=== PATIENT | male | born 1980 | race Caucasian/White ===

== ENCOUNTER → 2016-09-25 | Day surgery (SDC) | payer OTHER ==
[~2016-09-25] MED LIST: ATOR20TA58 PO; FENTANYL PF 100 MCG/2 ML VIAL. IV PRN; HYDROMORPHONE 2 MG/ML VIAL. IV PRN; IV RINGERS,LACTATED 1000ML 1,000 ML IV SCH; LIDOCAINE 1% 1 ML SYRINGE. ID PRN; LIDOCAINE 2% PF Vial for OR 5 ML VIAL. ONE; MORPHINE SULFATE 2 MG/ML DISP.SYRIN. IV PRN; ONDANSETRON PF 4 MG/2 ML VIAL. IV PRN; ORPH100T PO; PROCHLORPERAZINE 10 MG/2 ML VIAL. IV PRN; PROPOFOL 0 ML IV ONE; PROPOFOL 20 ML IV ONE; SUMA100T4 PO; TRAM50TA PO
[2016-09-25 09:37] VITALS: BP 107/60
--- NOTE | 2016-09-26 00:41 | CONS ---
DATE OF CONSULTATION: 09/25/2016 REFERRING PHYSICIAN: ____. HISTORY OF PRESENT ILLNESS: This is a 36-year-old male with past medical history significant for hyperlipidemia, arthritis is seen for further evaluation of right upper quadrant abdominal pain that is worsened with movement, 10 months in duration, worse with fatty and greasy foods, prior appendectomy, has had a previous ultrasound of the gallbladder and HIDA scan with ejection fraction then performed, which were unrevealing for cholelithiasis and/or symptom reproduction with the Kinevac injection with stable weight and appetite, lack of resolution with Prilosec 20 mg daily. He is here for EGD to further assess. PAST MEDICAL HISTORY: Osteoarthrosis, hyperlipidemia. ALLERGIES: CODEINE. MEDICATIONS: Include atorvastatin, tramadol, sumatriptan, and orphenadrine. FAMILY AND SOCIAL HISTORY: He is a current smoker, drinks occasional alcoholic beverage, status post appendectomy. REVIEW OF SYSTEMS: Per records. PHYSICAL EXAMINATION: GENERAL: Reveals a well-nourished, well-developed male. VITAL SIGNS: Temperature is 98.3, pulse 78, respirations 18. HEENT: Normocephalic and atraumatic head. Pupils and extraocular movements not tested. Sclerae anicteric. NECK: Supple. LUNGS: Clear. CARDIOVASCULAR: Reveals an S1, S2 without S3, S4 or appreciable murmur. ABDOMEN: Reveals a soft abdomen, normal bowel sounds, without appreciable hepatosplenomegaly with right upper quadrant to deep palpation. EXTREMITIES: Reveals no cyanosis, clubbing or edema. IMPRESSION: Right upper quadrant abdominal pain, etiology is to be determined. Differential includes celiac disease, eosinophilic gastroenteritis, peptic ulcer disease, gastroparesis, malignancy, among others as well as partial small-bowel obstruction; therefore, recommend EGD. If this is unrevealing then a gastric emptying study, small bowel series would be pursued. JAYNA SARGENT MD DR: FRENCH/austin JOB#: [id number] / [id number]
--- NOTE | 2016-09-28 15:16 | PATHOLOGY ---
PATHOLOGY REPORT * * * * * * * * FINAL DIAGNOSIS: Duodenal biopsy: - No significant pathologic abnormalities. COMMENT: Sections of the duodenal biopsy reveal segments of duodenal and small intestine mucosa. Where best oriented, the mucosal villi appear normal and show no sprue-like changes or significant inflammatory changes. (JPM:; d/t: 09/28/16) REPORT ELECTRONICALLY SIGNED BY: Silverio Quigley M.D. DATE/TIME: 09/28/2016 15:16 * * * * * * * * GROSS PATHOLOGY: Received in formalin labeled "Andrew Isabel, duodenal biopsy," are seven segments of mancera soft tissue measuring 1.0 x 0.9 x 0.2 cm in aggregate dimensions and ranging from 0.3 to 0.5 cm in maximum dimension. The specimen is submitted entirely in cassette A1. (CAA; 09/25/2016) INITIAL CPT CODE(S): A; 69661 Professional services performed [place] [facility] [place] [address] Technical services performed by [facility] at [address] [place] [address]. SPECIMEN(S) RECEIVED: A.Duodenal biopsy CLINICAL HISTORY: Abdominal pain; r/o celiac disease PATIENT: ANDREW ISABEL /AGE: 109/21/1980 (Age: 36) PATIENT #: [id number] ALT CASE #: SPECIMEN COLLECTION DATE: 09/25/2016 SPECIMEN RECEIVED DATE: 09/25/2016 [facility] - [address] [place] [address] - PHONE: [phone] * * * END OF REPORT * * *
== END ==
LOC: ENDOS 08:04
PROVIDERS: ATTEND Internal Medicine Gastroenterology
DX: K29.50 Unspecified chronic gastritis without bleeding (principal); K31.9 Disease of stomach and duodenum, unspecified; M19.90 Unspecified osteoarthritis, unspecified site; E78.00 Pure hypercholesterolemia, unspecified
CPT/HCPCS: 43239; J2704

== ENCOUNTER → 2017-02-10 | Outpatient (CLI) | payer OTHER ==
[2016-09-25 09:37] VITALS: BP 107/60
[~2017-02-10] MED LIST changes: -FENTANYL PF 100 MCG/2 ML VIAL. IV PRN; -HYDROMORPHONE 2 MG/ML VIAL. IV PRN; -IV RINGERS,LACTATED 1000ML 1,000 ML IV SCH; -LIDOCAINE 1% 1 ML SYRINGE. ID PRN; -LIDOCAINE 2% PF Vial for OR 5 ML VIAL. ONE; -MORPHINE SULFATE 2 MG/ML DISP.SYRIN. IV PRN; -ONDANSETRON PF 4 MG/2 ML VIAL. IV PRN; -PROCHLORPERAZINE 10 MG/2 ML VIAL. IV PRN; -PROPOFOL 0 ML IV ONE; -PROPOFOL 20 ML IV ONE
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
== END | disposition home or self-care (01) ==
LOC: KCIC MRI 08:28
PROVIDERS: ATTEND Family Medicine
DX: M50.321 Other cervical disc degeneration at C4-C5 level (principal); M50.322 Other cervical disc degeneration at C5-C6 level; M50.323 Other cervical disc degeneration at C6-C7 level; M51.37 Other intervertebral disc degeneration, lumbosacral region; D18.00 Hemangioma unspecified site
CPT/HCPCS: 72141; 72146; 72148

== ENCOUNTER → 2017-06-17 | Outpatient (CLI) | payer OTHER ==
[2016-09-25 09:37] VITALS: BP 107/60
[~2017-06-17] MED LIST changes: +CELE200C PO; +CYCL5TAB PO; +DULO60CA6 PO; +EPIPEN0.3 MG/0.3 IJ; +OMEP20TA63 PO
--- NOTE | 2017-06-17 14:31 | PAIN ---
DATE OF SERVICE: 06/17/2017 DATE OF SERVICE: 06/17/2017 DIAGNOSES: 1. Lumbar radiculopathy with lumbar degenerative disk disease. 2. Cervical radiculopathy with cervicalgia. HISTORY OF PRESENT ILLNESS: The patient is a 36-year-old male who returns for followup status post cervical epidural steroid injections, last seen in June 2016. The patient did fairly well with the cervical injections, reports that he has been doing much better with that over time. His main complaint today; however, is low back and right greater than left lower extremity pain. The patient reports significant pain in the right leg with numbness and tingling, shooting in the legs has been going on for about 5-6 months. No specific injury or accident that he is aware of, but the pain has been increasing with tingling, numbness in the right leg, aching, sharp and dull, waking him from sleep occasionally, but usually he feels better with lying down, worse with walking and standing, changing positions, bending, flexing forward. Pain across the back into the right leg, right posterior gluteus, posterior thigh, posterior calf, left posterior calf and posterior thigh as well and the left hip; however, some pain in the anterior hip as well as right side only worse with walking and standing. The patient reports the pain is a 7 on a scale of 10 at its worst, a 4 on average, is a 1 at its least, it is a 4 today. The patient reports no new motor or sensory deficits, no new bowel or bladder incontinence. The patient did have MRI scan of the lumbar spine dated 01/2017 showing a posterior central protrusion at L5-S1 with associated annular tear without significant impingement of descending S1 nerve roots. PAST MEDICAL HISTORY: Significant for dizziness, headaches, gastritis, esophagitis, arthritis, cigarette smoking. PREVIOUS SURGERY: Includes appendectomy in 2010. CURRENT MEDICATIONS: Updated and well documented on the patient's chart. ALLERGIES: THE PATIENT IS ALLERGIC TO TYLENOL #3 AND SHELLFISH. FAMILY HISTORY: Significant for no major medical problems that he is aware of. SOCIAL HISTORY: The patient smokes 1 pack of cigarettes a day, continues to smoke and has for about 15 years, drinks 2-4 alcoholic drinks a month on average, but only socially. The patient is and lives with his spouse and 2 children in [place], [place], has a job at a local [employer] where he is on his feet for part of the day, but sitting at desk for the rest. REVIEW OF SYSTEMS: The patient's review of systems is positive for those items mentioned in history of present illness. It is complete, full and well documented on the patient's chart. PHYSICAL EXAMINATION: VITAL SIGNS: The patient's blood pressure is 119/84, pulse 91, respirations 16, temperature is 97.8 degrees Fahrenheit, height is 5 feet 10 inches, weight is 256 pounds. GENERAL: The patient is awake, alert, oriented, appropriate, very pleasant demeanor. HEENT: Head shows normocephalic, atraumatic. Extraocular movements are intact and symmetrical. Oral cavity shows mucous membranes moist and pink. Dentition is intact. NECK: Shows anterior throat supple without palpable lymphadenopathy noted. Swallow reflex is symmetrical. CHEST: Shows normal on inspection. Breath sounds are clear to auscultation bilaterally. HEART: Shows S1 and S2 clear. ABDOMEN: Soft, nontender, nondistended. No palpable organomegaly is noted. No rebound or guarding demonstrated. BACK: Shows spine grossly in midline. Neck shows full rotational motion of cervical spine without significant tenderness or difficulty. Paraspinous musculature shows symmetrical, without significant tenderness in the cervical distribution or trapezius. The patient's back shows normal appearing thoracic kyphosis and lumbar lordotic curvature. No previous bruises, lesions, rashes or scars are noted. Lumbar curvature is normal in appearance, has symmetry of the paraspinous musculature in the lumbar distribution. With palpation shows some moderate tenderness at the inferior aspect of the lumbar paraspinous muscles, but only diffusely without atrophy, hypertrophy without radiation. The patient shows full rotational motion of lumbar spine, both laterally as well as extension and flexion without significant pain reported. No tenderness over the sacrum and sacroiliac regions. Lower extremities showed deep tendon reflexes 2+ in the patellar, 1+ tendo-calcaneus tendons are equal. Motor exam is approximately 4 on a scale of 5 with quadriceps and hamstring flexion on the right 5/5 with dorsiflexion, extension and left side is 5/5 throughout. Peripheral pulses are 2+ posterior tibial and dorsalis pedis pulses. No peripheral edema is noted. No clubbing, no cyanosis, no difficulty with Gaenslen's or Mani's maneuvers are grossly negative, some minor pain reported on the right side with external rotation of the right hip, but only very minimal. The patient is able to stand, stand on his toes, walks with a normal appearing gait. He does not appear to favor the right lower extremity for a short walk in the office today and not using any assistive devices such as canes or walkers to ambulate. PLAN: Options were discussed with the patient. Again, patient's old chart was reviewed as his current medication regimen updated. Current review of systems updated today as well as noted. We will preauthorize the patient for a lumbar epidural steroid injection for significant radicular pattern in the L5-S1 distribution, more right than left with significant increase in pain and some weakness in the right leg as well. We will try Medrol Dosepak in the meantime. The patient was given instruction as well as side effects to be aware with the medications and will follow up in approximately one week. We will plan on lumbar epidural steroid injection at that time. KAREN PAINTING MD DR: DEBBY/austin JOB#: [id number] / [id number]
== END | disposition home or self-care (01) ==
LOC: PNCL 08:53
PROVIDERS: ATTEND Anesthesiology
DX: M51.16 Intervertebral disc disorders with radiculopathy, lumbar region (principal); K29.70 Gastritis, unspecified, without bleeding; K20.9 Esophagitis, unspecified; R53.1 Weakness; R20.0 Anesthesia of skin; F17.210 Nicotine dependence, cigarettes, uncomplicated
CPT/HCPCS: 99212

== ENCOUNTER → 2017-07-01 | Outpatient (CLI) | payer OTHER ==
[2016-09-25 09:37] VITALS: BP 107/60
[~2017-07-01] MED LIST changes: +IOHEXOL 180 MG/ML 10 ML VIAL. ONE; +methylPREDNISolone ACETATE 40 MG/ML VIAL. ONE; +methylPREDNISolone ACETATE 80 MG/ML VIAL. ONE
--- NOTE | 2017-07-01 22:32 | PAIN ---
DATE OF SERVICE: 07/01/2017 PROGRESS NOTE FOR PAIN CLINIC DIAGNOSES: Lumbar radiculopathy with lumbar degenerative disk disease and cervical radiculopathy with cervicalgia. HISTORY OF PRESENT ILLNESS: The patient is a 36-year-old male who returns for followup status post previous cervical epidural steroid injections with good results but with significant pain in the low back and right lower extremity with the MRI scan showing posterior central protrusion at the L5-S1 level. The patient was seen for initial evaluation and returns now after preauthorization with his insurance provider for lumbar epidural steroid injections, still complaining of pain in the low back and right lower extremity, mostly in the posterior gluteus, posterior thigh, posterior calf radiating from the low back to the right side. No pain on the left side at this time. The patient reports pain as 6 on a scale of 10 at its worse, 4 on average, 2 is at least and is 2 today. The patient reports tingling, burning, radiating, sharp and dull pain, worse with standing, walking, changing positions, better with sitting or lying down. He is sleeping about 7 hours a night, does not awaken him from sleep. The patient also taking a muscle relaxer, which seems to help the pain as well. The patient reports no new motor or sensory deficits, no new bowel or bladder incontinence or other complaints. PHYSICAL EXAMINATION: VITAL SIGNS: The patient's blood pressure 122/94, pulse 98, respirations are 20, temperature 98.7 degrees Fahrenheit and weight is 260 pounds. GENERAL: The patient is awake, alert, oriented, appropriate and very pleasant demeanor. HEENT: Shows normocephalic and atraumatic. Extraocular movements are intact, symmetrical. Oral cavity, mucous membranes moist and pink. Dentition is intact. NECK: Shows anterior throat supple without palpable lymphadenopathy noted. Swallow reflex is symmetrical. CHEST: Shows normal on inspection. Breath sounds clear to auscultation bilaterally. HEART: Shows S1 and S2 clear. No murmurs auscultated. ABDOMEN: Soft, nontender and nondistended. No palpable organomegaly is noted. No rebound or guarding demonstrated. BACK: Shows spine grossly in the midline. Lumbar paraspinous musculature shows normal curvature. No rashes or bruises, lesions or scars. Lumbar paraspinous musculature shows symmetrical. On inspection with palpation shows moderate tenderness to palpation but only diffusely in the lower lumbar distribution bilaterally, slightly more on the right than the left, but without atrophy or hypertrophy. No radiation or trigger points. The patient has full rotational motion of the lumbar spine, both laterally as well as extension and flexion without difficulty. EXTREMITIES: Lower extremities showed deep tendon reflexes at 2+ in the patellar, 1+ tendo calcaneus tendons. Motor exam is approximately 4 on a scale of 5 with right dorsiflexion and extension of 5/5 on the left. No peripheral edema is noted. Peripheral pulses are 2+ posterior tibial and dorsalis pedis pulses. Options were discussed with the patient and the patient's old chart was reviewed as well as his current medication regimen updated. Current review of systems updated today as well. We will proceed with a lumbar epidural steroid injection today that is first in the series with fluoroscopic guidance. Risks were again discussed including but not limited to bleeding, infection, possibility of epidural hematoma and subsequent neurologic compromise, dural puncture, headaches, spinal cord and/or nerve damage, side effects of steroid medication and poor results regarding pain control. The patient understands and wishes to proceed. The patient will return to clinic in approximately 2 weeks for followup. He was counseled to return appointment, activity level and side effects to be aware of. DIAGNOSIS: Lumbar radiculopathy with lumbar degenerative disk disease. PROCEDURE: Lumbar epidural steroid injection in translaminar approach at the L5-S1 level using C-arm fluoroscopic guidance under sterile prep and drape using local anesthetic. MEDICATION INJECTED: A total of 120 mg Depo-Medrol plus 10 mL of preservative-free normal saline and 2 mL of Isovue for contrast. CONDITION ON DISCHARGE: Stable. The patient tolerated procedure well, had no complications. KAREN PAINTING MD DR: DEBBY/austin JOB#: [id number] / [id number]
== END | disposition home or self-care (01) ==
LOC: PNCL 08:47
PROVIDERS: ATTEND Anesthesiology
DX: M51.16 Intervertebral disc disorders with radiculopathy, lumbar region (principal); M50.10 Cervical disc disorder with radiculopathy, unspecified cervical region; E78.00 Pure hypercholesterolemia, unspecified; M19.90 Unspecified osteoarthritis, unspecified site; F17.210 Nicotine dependence, cigarettes, uncomplicated
CPT/HCPCS: 62323; J1030; J1040

== ENCOUNTER → 2017-07-16 | Outpatient (CLI) | payer OTHER ==
[2016-09-25 09:37] VITALS: BP 107/60
--- NOTE | 2017-07-16 19:01 | PAIN ---
DATE OF SERVICE: 07/16/2017 DIAGNOSES: 1. Cervical radiculopathy and cervicalgia. 2. Lumbar radiculopathy with lumbar degenerative disk disease. HISTORY OF PRESENT ILLNESS: The patient is a 36-year-old male who returns for followup status post lumbar epidural steroid injection x 1 with about 30% improvement in the low back and right lower extremity. The patient reports still significant pain in the back and right lower extremity radiating becoming more tingling and burning, aching, sharp, dull, alternating but is on and off, now, it was more constant and is becoming less frequent. The patient reports he has increased activity with greater ease and comfort and sleeping better at night, does not awaken him from sleep. He feels better with sitting or lying down, worse with standing, walking, changing positions. The patient rates his pain as 6 on a scale of 10 at its worst, is a 4 on average and is 2 at its least, and is a 3 this morning. The patient reports no new motor or sensory deficits, no new bowel or bladder incontinence or other complaints. PHYSICAL EXAMINATION: VITAL SIGNS: The patient's blood pressure 135/97, pulse 80, respirations are 20, temperature 97.4 degrees Fahrenheit, height is 5 feet 10 inches. Weight is 257 pounds. GENERAL: The patient is awake, alert, oriented, appropriate, very pleasant demeanor. HEENT: Head shows normocephalic, atraumatic. Extraocular movements are intact and symmetrical. Oral cavity, mucous membranes are moist and pink. Dentition intact. NECK: Shows anterior throat supple without palpable lymphadenopathy noted. Swallow reflex is symmetrical. CHEST: Shows normal on inspection. Breath sounds are clear to auscultation bilaterally. HEART: Shows S1 and S2 clear. No murmurs auscultated. ABDOMEN: Soft, nontender, nondistended. No palpable organomegaly. There is no rebound or guarding demonstrated. BACK: Shows spine grossly in midline. Lumbar paraspinous musculature shows symmetrical on inspection and palpation shows some moderate tenderness only in the low lumbar distribution and only diffusely without radiation. No tenderness over the spinous processes, sacrum or sacroiliac regions. The patient shows good rotation and motion of the lumbar spine, both laterally as well as extension and flexion without pain reported. EXTREMITIES: Lower extremities show deep tendon reflexes 2+ in the patellar and 1+ tendo calcaneus tendons. Motor exam is strong with 5/5 dorsiflexion and extension on the left and 4/5 with right dorsiflexion, extension at 5/5 with quadriceps and hamstring flexion on the right. Peripheral pulses are 2+ in the posterior tibial distribution. No peripheral edema is noted. Options were discussed with the patient and the patient's old chart was reviewed as his current medication regimen updated. Current review of systems updated today as well and we will proceed with a second in this series lumbar epidural steroid injection with fluoroscopic guidance. Risks were again discussed including, but not limited to bleeding, infection, possibility of epidural hematoma, subsequent neurologic compromise, dural puncture, headaches, spinal cord and/or nerve damage, side effects of steroid medication and poor results regarding pain control. The patient understands and wishes to proceed. The patient will return to clinic in approximately 2 weeks for followup. He was counseled to return appointment, activity level and side effects to be aware of. DIAGNOSIS: Lumbar radiculopathy with lumbar degenerative disk disease. PROCEDURE: Lumbar epidural steroid injection in translaminar approach at L5-S1 level using C-arm fluoroscopic guidance under sterile prep and drape using local anesthetic. Medication injected is total of 120 mg Depo-Medrol plus 10 mL of preservative-free normal saline and 2 mL of Isovue for contrast. CONDITION AT DISCHARGE: Stable. The patient tolerated the procedure well, had no complications. KAREN PAINTING MD DR: DEBBY/austin JOB#: [id number] / [id number]
== END ==
LOC: PNCL 08:35
PROVIDERS: ATTEND Anesthesiology
DX: M51.16 Intervertebral disc disorders with radiculopathy, lumbar region (principal); E78.00 Pure hypercholesterolemia, unspecified; M19.90 Unspecified osteoarthritis, unspecified site; Z98.890 Other specified postprocedural states
CPT/HCPCS: 62323; J1030; J1040

== ENCOUNTER → 2017-08-20 | Outpatient (CLI) | payer OTHER ==
[2016-09-25 09:37] VITALS: BP 107/60
--- NOTE | 2017-08-20 17:24 | PAIN ---
DATE OF SERVICE: 08/20/2017 PROGRESS NOTE FOR PAIN CLINIC DIAGNOSES: 1. Cervical radiculopathy with cervicalgia. 2. Lumbar radiculopathy with lumbar degenerative disk disease. HISTORY OF PRESENT ILLNESS: The patient is a 36-year-old male who returns for followup status post lumbar epidural steroid injection x 2, last seen 07/16/2017. The patient reports he did fairly well with this, about 30% improvement overall in the low back and bilateral lower extremity. Still pain in the right greater than left lower extremity, but has been increasing activity with greater ease and comfort. The pain is returning now over the past week or so, increasing in the low back and right leg, posterior gluteus, posterior bilateral lumbar paraspinous musculature as well as into the posterior thigh, posterior calf on the right side slightly on the left, mostly in the right. The patient reports it is sharp, dull, tingling and burning and becoming more noticeable. The patient reports it is worse with standing, walking, better with sitting or lying down, sporadically awakens him from sleep, but not every night. The patient reports pain is 8 on a scale of 10 at its worst, 6 on average and 3 at its least and is a 4 today. The patient reports no new motor or sensory deficits, no new bowel or bladder incontinence or other complaints. PHYSICAL EXAMINATION: VITAL SIGNS: The patient's blood pressure is 135/83, pulse 65, respirations are 16, temperature is 97.9 degrees Fahrenheit, weight is 258 pounds. GENERAL: The patient is awake, alert, oriented, appropriate, very pleasant demeanor. HEENT: Shows normocephalic, atraumatic. Extraocular movements are intact, symmetrical. Oral cavity: Mucous membranes moist and pink. Dentition is intact. NECK: Shows anterior throat supple without palpable lymphadenopathy noted. Swallow reflex symmetrical. CHEST: Shows normal on inspection. Breath sounds are clear to auscultation bilaterally. HEART: Shows S1, S2 clear. No murmurs auscultated. ABDOMEN: Obese, soft, nontender, nondistended. No palpable organomegaly. No rebound or guarding demonstrated. BACK: The patient's back shows spine grossly in the midline. Lumbar paraspinous muscle shows symmetrical on inspection. No bruises, lesions or rashes are noted. With palpation shows moderate tenderness bilaterally in the middle low distribution of paraspinous muscles bilaterally without radiation, but diffusely tender without trigger points or atrophy, hypertrophy noted. No tenderness over the spinous processes, sacrum or sacroiliac regions. The patient has good rotational motion of lumbar spine both laterally as well as extension and flexion without difficulty. EXTREMITIES: The patient's lower extremities show deep tendon reflexes at 2+ in the patellar and tendo-calcaneus tendons are 1+. Motor exam is strong with 5/5 left dorsiflexion, extension and 4/5 on the right, but intact. Peripheral pulses are 1+ posterior tibial. No peripheral edema is noted bilaterally. Options were discussed with the patient. The patient's old chart was reviewed as his current medication regimen updated. Current review of systems updated today as well and we will proceed with a third in a series lumbar epidural steroid injection today with fluoroscopic guidance. Risks were discussed including but not limited to bleeding, infection, possibility of epidural hematoma and subsequent neurological compromise, dural puncture, headaches, spinal cord and/or nerve damage, side effects of steroid medication and poor results regarding pain control. The patient understands and wished to proceed. The patient will return to clinic in approximately 2 weeks for followup. He was counseled on return appointment, activity level, and side effects to be aware of. DIAGNOSES: Lumbar radiculopathy with lumbar degenerative disk disease. PROCEDURE: Lumbar epidural steroid injection, translaminar approach at L5-S1 level using C-arm fluoroscopic guidance under sterile prep and drape using local anesthetic. Medication injected a total of 120 mg Depo-Medrol plus 10 mL of preservative-free normal saline and 2 mL of Isovue for contrast. CONDITION AT DISCHARGE: Stable. The patient tolerated procedure well, had no complications. KAREN PAINTING MD DR: DEBBY/austin JOB#: [id number] / [id number]
== END | disposition home or self-care (01) ==
LOC: PNCL 09:42
PROVIDERS: ATTEND Anesthesiology
DX: M51.16 Intervertebral disc disorders with radiculopathy, lumbar region (principal); M54.12 Radiculopathy, cervical region; E78.00 Pure hypercholesterolemia, unspecified; M19.91 Primary osteoarthritis, unspecified site; Z87.39 Personal history of other diseases of the musculoskeletal system and connective tissue; Z72.0 Tobacco use; Z88.6 Allergy status to analgesic agent; Z91.013 Allergy to seafood
CPT/HCPCS: 62323; J1030; J1040

== ENCOUNTER → 2017-12-08 | Outpatient (CLI) | payer OTHER | END | disposition home or self-care (01) | LOC: PNCL 08:16 | DX: M51.16 Intervertebral disc disorders with radiculopathy, lumbar region (principal); M54.2 Cervicalgia | CPT/HCPCS: 99212 ==

== ENCOUNTER → 2018-01-03 | Outpatient (CLI) | payer OTHER ==
[~2018-01-03] MED LIST changes: -ATOR20TA58 PO; -CELE200C PO; -CYCL5TAB PO; -DULO60CA6 PO; -EPIPEN0.3 MG/0.3 IJ; +IOHEXOL 180 MG/ML 10 ML VIAL.; -IOHEXOL 180 MG/ML 10 ML VIAL. ONE; -OMEP20TA63 PO; -ORPH100T PO; -SUMA100T4 PO; -TRAM50TA PO; +methylPREDNISolone ACETATE 40 MG/ML VIAL.; -methylPREDNISolone ACETATE 40 MG/ML VIAL. ONE; +methylPREDNISolone ACETATE 80 MG/ML VIAL.; -methylPREDNISolone ACETATE 80 MG/ML VIAL. ONE
== END | disposition home or self-care (01) ==
LOC: PNCL 08:30
DX: M51.16 Intervertebral disc disorders with radiculopathy, lumbar region (principal); E78.00 Pure hypercholesterolemia, unspecified; M19.90 Unspecified osteoarthritis, unspecified site; Z72.0 Tobacco use; Z88.5 Allergy status to narcotic agent; Z91.013 Allergy to seafood; Z88.6 Allergy status to analgesic agent
CPT/HCPCS: 62323; J1030; J1040; Q9965

== ENCOUNTER → 2018-02-24 | Outpatient (CLI) | payer OTHER ==
[~2018-02-24] MED LIST changes: +LIDOCAINE 1% PF 2 ML VIAL.
== END ==
LOC: PNCL 08:13
DX: M51.16 Intervertebral disc disorders with radiculopathy, lumbar region (principal); E78.00 Pure hypercholesterolemia, unspecified; Z87.39 Personal history of other diseases of the musculoskeletal system and connective tissue; Z72.0 Tobacco use; Z88.6 Allergy status to analgesic agent; Z88.5 Allergy status to narcotic agent; Z91.013 Allergy to seafood
CPT/HCPCS: 62323; J1030; J1040; Q9965

== ENCOUNTER → 2018-06-01 | Outpatient (CLI) | payer OTHER ==
[2016-09-25 09:37] VITALS: BP 107/60
[~2018-06-01] MED LIST changes: +ATOR20TA58 PO; +CELE200C PO; +CYCL5TAB PO; +DULO60CA6 PO; +EPIPEN0.3 MG/0.3 IJ; -IOHEXOL 180 MG/ML 10 ML VIAL.; +IOHEXOL 180 MG/ML 10 ML VIAL. ONE; -LIDOCAINE 1% PF 2 ML VIAL.; +LIDOCAINE 2% PF 2ML VIAL. ONE; +OMEP20TA63 PO; +ORPH100T PO; +SUMA100T4 PO; +TOPI25TA52 PO; +TRAM50TA PO; -methylPREDNISolone ACETATE 40 MG/ML VIAL.; +methylPREDNISolone ACETATE 40 MG/ML VIAL. ONE; -methylPREDNISolone ACETATE 80 MG/ML VIAL.; +methylPREDNISolone ACETATE 80 MG/ML VIAL. ONE
--- NOTE | 2018-06-01 22:02 | PAIN ---
DATE OF SERVICE: 06/01/2018 PROGRESS NOTE FOR PAIN CLINIC DIAGNOSES: 1. Cervical radiculopathy with cervicalgia. 2. Lumbar radiculopathy with lumbar degenerative disk disease. HISTORY OF PRESENT ILLNESS: The patient is a 37-year-old male who returns for followup status post lumbar epidural steroid injection x 2. The patient reports about 50% improvement for the first 1-1/2 months after his last injection, which was 02/24/2010. The patient reports he did very well with increased activity both work at home as well as distance walking with greater ease and comfort. The patient reports now the pain is returning in his low back and left lower extremity, mostly in the posterior gluteus, posterior thigh, posterior calf. Again, worse with weightbearing, standing and walking. The patient reports it is a 5 on a scale of 10 at its worst, 3 on average, 2 at its least and a 3 today. The patient reports sharp, shooting, tingling, stabbing, radiating, becoming more constant in the lower extremity on the left side and the low back. The patient reports it awakens him from sleep about every 4-5 hours. He needs to reposition and get back to sleep without difficulty. The patient reports no new motor or sensory deficits, no bowel or bladder incontinence or other complaints. PHYSICAL EXAMINATION: VITAL SIGNS: Today, the patient's blood pressure is 132/104, pulse 98, respirations 18, temperature is 98.4 degrees Fahrenheit, height is 5 feet 10 inches, weight 256 pounds. GENERAL: The patient is awake, alert, oriented, appropriate, very pleasant demeanor. HEENT: Head is normocephalic, atraumatic. Extraocular movements intact and symmetrical. Oral cavity: Mucous membranes are moist and pink. Dentition is intact. NECK: Shows anterior throat supple without palpable lymphadenopathy noted. Swallow reflex symmetrical. CHEST: Shows normal with inspection. Breath sounds clear to auscultation bilaterally. HEART: Shows S1, S2 clear. No murmurs auscultated. ABDOMEN: Obese, soft, nontender, nondistended. No palpable organomegaly is noted. No rebound or guarding demonstrated. BACK: Shows spine grossly in the midline. Normal appearing thoracic kyphosis and some mild flattening of lumbar lordotic curvature. Lumbar paraspinous muscle shows symmetrical on inspection. On palpation shows some moderate tenderness only diffusely in the low lumbar distribution bilaterally without radiation. No tenderness with palpation of the spinous processes, sacrum or sacroiliac regions. EXTREMITIES: The patient's lower extremities show deep tendon reflexes at 2+ in the patellar, 1+ tendo-calcaneus tendons. Motor exam is approximately 4 on a scale of 5 on the right, 5/5 on the left with dorsiflexion and extension. Peripheral pulses are 1+ posterior tibial. No peripheral edema is noted bilaterally. Options were discussed with the patient. The patient's old chart reviewed as his current medication regimen updated. Current review of systems updated today as well. We will proceed with a third in the series of lumbar epidural steroid injection today with fluoroscopic guidance. Risks were again discussed including, but not limited to bleeding, infection, possibility of epidural hematoma, subsequent neurological compromise, dural puncture, headaches, spinal cord and/or nerve damage, side effects of steroid medication and poor results regarding pain control. The patient understands and wishes to proceed. The patient to return to clinic in approximately 2 weeks for followup, was counseled on return appointment, activity level and side effects to be aware of. DIAGNOSIS: Lumbar radiculopathy with lumbar degenerative disk disease. PROCEDURE: Lumbar epidural steroid injection, translaminar approach L4-L5 level using C-arm fluoroscopic guidance under sterile prep and drape using local anesthetic. MEDICATION INJECTED: A total of 120 mg Depo-Medrol plus 10 mL of preservative-free normal saline and 2 mL of Isovue for contrast. CONDITION AT DISCHARGE: Stable. The patient tolerated procedure well, had no complications. KAREN PAINTING MD DR: DEBBY/austin JOB#: [id number] / [id number]
== END | disposition home or self-care (01) ==
LOC: PNCL 08:52
PROVIDERS: ATTEND Anesthesiology
DX: M51.16 Intervertebral disc disorders with radiculopathy, lumbar region (principal); E78.00 Pure hypercholesterolemia, unspecified; M19.90 Unspecified osteoarthritis, unspecified site; Z79.899 Other long term (current) drug therapy; Z88.6 Allergy status to analgesic agent; Z88.5 Allergy status to narcotic agent; Z91.013 Allergy to seafood; Z72.0 Tobacco use
CPT/HCPCS: 62323; J1030; J1040; J2001; Q9965